=== PATIENT | female | born 1970 | race Caucasian/White ===

== ENCOUNTER 2021-09-10 22:22 | Inpatient (IN) ==
[2021-09-10] MEDS ORDERED: *HR* OxyCODONE/APAP 10/325 TABLET PO ONE (23:37)
[2021-09-11 00:18] LABS: Basophils % 0.2 %; Hemoglobin 13.2 g/dL (11.5-15.4); Immature Granulocytes % 0.4 % (0-4); Mean Corpuscular Hemoglobin 28.6 pg (28.0-33.3); Monocytes % 4.5 %; Red Blood Count 4.61 M/mcL (3.82-4.97)
[2021-09-11 00:20] LABS: Hematocrit 42.4 % (35.3-44.9); Lymphocytes # 0.5 K/mcL (0.6-4.6); Mean Corpuscular HGB Conc 31.1 g/dL (31.6-35.5); Mean Platelet Volume 11.5 fL (9.4-12.4); Monocytes # 0.4 K/mcL (0.0-1.3); Neutrophils # 8.4 K/mcL (1.6-8.9); Platelet Count 164 K/mcL (140-400); Red Cell Distribution Width 17.1 % (11.5-14.5); Segmented Neutrophils % 89.9 %; White Blood Count 9.3 K/mcL (4.3-11.1)
[2021-09-11 00:26] LABS: INR 1.2; Prothrombin Time 13.7 Seconds (9.4-12.1)
[2021-09-11 00:29] LABS: Activated Partial Thrombo Time 25.7 Seconds (26.0-36.0)
[2021-09-11] MEDS ORDERED: Aspirin 325 MG TABLET PO ONE (00:31)
[2021-09-11 00:34] LABS: BUN/Creatinine Ratio 26 (6-26); Blood Urea Nitrogen 15 mg/dL (6-20); Calcium 10.4 mg/dL (8.6-10.3); Carbon Dioxide 29 mEq/L (23-29); Chloride 95 mEq/L (98-107); Glucose 93 mg/dL (70-105); Osmolality,Calculated 283 (280-300); Potassium 4.1 mEq/L (3.5-5.1); Sodium 136 mEq/L (136-145); eGFR For African Americans > 60 (> 60); eGFR For Non-African Americans > 60 (> 60)
[2021-09-11 01:11] LABS: Troponin I 0.09 ng/mL (< 0.04)
[2021-09-11] MEDS ORDERED: Naloxone 0.4 MG/ML INJ IVP PRN (02:22)
[2021-09-11] MEDS ORDERED: Perflutren Lipid Microsphere 1.3 ML in 0.9 % Sodium Chloride 8.7 ML IVP PRN (03:14)
[2021-09-11] MEDS: Ipratropium/Albuterol Neb 3 ML IH SCH ×4 (04:06→20:58)
[2021-09-11 05:28] LABS: Basophils % 0.2 %; Hematocrit 39.2 % (35.3-44.9); Hemoglobin 12.3 g/dL (11.5-15.4); Immature Granulocytes % 0.5 % (0-4); Lymphocytes # 0.5 K/mcL (0.6-4.6); Lymphocytes % 3.5 %; Mean Corpuscular HGB Conc 31.4 g/dL (31.6-35.5); Mean Corpuscular Hemoglobin 28.3 pg (28.0-33.3); Mean Corpuscular Volume 90.3 fL (83.0-100.0); Mean Platelet Volume 12.1 fL (9.4-12.4); Monocytes # 1.1 K/mcL (0.0-1.3); Monocytes % 7.7 %; Nucleated Red Blood Cells 0.1 /100 WBC (0); Platelet Count 141 K/mcL (140-400); Red Blood Count 4.34 M/mcL (3.82-4.97); Red Cell Distribution Width 16.8 % (11.5-14.5); Segmented Neutrophils % 88.1 %
[2021-09-11 05:29] LABS: Neutrophils # 12.9 K/mcL (1.6-8.9); White Blood Count 14.6 K/mcL (4.3-11.1)
[2021-09-11] MEDS ORDERED: hydrOXYzine pamoate 25 MG CAPSULE PO ONE (05:36)
[2021-09-11] MEDS ORDERED: *HR* OxyCODONE Immed Rel 5 MG TABLET PO ONE (05:58)
[2021-09-11] MEDS ORDERED: *HR* Heparin 5,000 UNIT/ML VIAL SQ SCH (06:00)
[2021-09-11 06:05] LABS: BUN/Creatinine Ratio 34 (6-26); Blood Urea Nitrogen 18 mg/dL (6-20); Carbon Dioxide 28 mEq/L (23-29); Chloride 96 mEq/L (98-107); Glucose 112 mg/dL (70-105); Magnesium 1.9 mg/dL (1.6-2.6); Osmolality,Calculated 289 (280-300); Phosphorous 2.6 mg/dL (2.7-4.5); Potassium 3.9 mEq/L (3.5-5.1); Sodium 138 mEq/L (136-145); Troponin I 0.21 ng/mL (< 0.04); eGFR For African Americans > 60 (> 60); eGFR For Non-African Americans > 60 (> 60)
[2021-09-11] MEDS ORDERED: *HR* Heparin 5,000 UNIT/ML VIAL IVP PRN (06:17)
[2021-09-11 06:59] LABS: Heparin anti-factor XA UFH < 0.04 IU/mL (0.30-0.70); INR 1.2; Prothrombin Time 13.9 Seconds (9.4-12.1)
[2021-09-11] MEDS: Budesonide/Formoterol 160/4.5 1 PUFF INH IH SCH ×2 (07:33→20:58)
[2021-09-11] MEDS: Heparin 25,000UNIT/250ML 1/2NS 25,000 UNIT/250 ML IV.SOLN IVC SCH (08:13)
[2021-09-11] MEDS: MethylPREDNISolone 40 MG/ML VIAL IVP SCH ×3 (08:14→23:53)
[2021-09-11] MEDS: Azithromycin 500 MG in 0.9 % Sodium Chloride 250 ML IVPB SCH (08:15)
[2021-09-11] MEDS ORDERED: cefTRIAXone 1,000 MG in 0.9 % Sodium Chloride Mini Bag 100 ML IVPB SCH (09:00)
[2021-09-11] MEDS ORDERED: Azithromycin 250 MG TABLET PO SCH (09:00)
[2021-09-11] MEDS ORDERED: carvediloL 6.25 MG TABLET PO SCH (09:42)
[2021-09-11] MEDS ORDERED: ALPRAZolam 0.25 MG TABLET PO PRN (11:32)
[2021-09-11 17:14] LABS: Bilirubin,Urine Negative (Negative); Blood,Urine Trace (Negative); Clarity,Urine Clear (Clear); Color,Urine Yellow (Yellow); Glucose,Urine (UA) Normal (Normal); Ketones,Urine 60 mg/dL (Negative); Leukocyte Esterase,Urine Negative (Negative); Mucus,Urine Few per lpf (None-Few); Nitrite,Urine Negative (Negative); Protein,Urine 100 mg/dL (Neg-Trace); RBC,Urine 0-3 per hpf (0-3); Specific Gravity,Urine > 1.030 (1.010-1.025); Squamous Epithelial Cell,Urine Few per hpf (None-Few); Urobilinogen,Urine Normal (Normal); WBC,Urine 0-3 per hpf (0-3)
[2021-09-11] MEDS ORDERED: *HR* LORazepam 2 MG/ML VIAL IVP PRN (17:49)
[2021-09-11 18:43] LABS: ABG Base Excess 9 mEq/L (-2 to 3); ABG HCO3 37 mEq/L (21-27); ABG Oxygen Saturation 85 % (95-98); ABG PCO2 64 mmHg (35-45); ABG PH 7.37 pH Units (7.32-7.45); ABG PO2 54 mmHg (85-104); ABG TCO2 39 mEq/L (20-26)
[2021-09-11] MEDS ORDERED: Morphine Sulfate 2 MG/ML SYRINGE IVP ONE (18:58)
[2021-09-11] MEDS ORDERED: Vancomycin 1,500 MG/265 ML IV.SOLN IVPB SCH (19:00)
[2021-09-11] MEDS ORDERED: Nitroglycerin 1 INCH/GM PACKET TP ONE (19:27)
[2021-09-11] MEDS ORDERED: Furosemide 40 MG/4 ML VIAL IVP ONE (19:38)
[2021-09-11] MEDS: Metoprolol XL (24 HR) Succ 25 MG TAB.ER.24H PO SCH ×2 (20:13→23:52)
[2021-09-11] MEDS: *HR* Heparin 5,000 UNIT/ML VIAL IVP PRN (22:16)
[2021-09-11] MEDS: Cefepime HCl 2,000 MG in 0.9 % Sodium Chloride Mini Bag 100 ML IVPB SCH (23:52)
[2021-09-12] MEDS ORDERED: hydrOXYzine pamoate 25 MG CAPSULE PO PRN (02:16)
[2021-09-12] MEDS ORDERED: *HR* LORazepam 2 MG/ML VIAL IVP ONE ×3 (02:19→05:56)
[2021-09-12] MEDS: Ipratropium/Albuterol Neb 3 ML IH SCH ×4 (04:02→19:50)
[2021-09-12 05:00] LABS: Basophils # 0.1 K/mcL (0.0-0.2); Basophils % 0.3 %; Hematocrit 42.5 % (35.3-44.9); Immature Granulocytes % 0.8 % (0-4); Lymphocytes # 0.7 K/mcL (0.6-4.6); Lymphocytes % 3.2 %; Mean Corpuscular HGB Conc 33.4 g/dL (31.6-35.5); Mean Corpuscular Hemoglobin 29.5 pg (28.0-33.3); Mean Corpuscular Volume 88.2 fL (83.0-100.0); Mean Platelet Volume 12.4 fL (9.4-12.4); Monocytes # 1.1 K/mcL (0.0-1.3); Monocytes % 4.8 %; Neutrophils # 20.5 K/mcL (1.6-8.9); Nucleated Red Blood Cells 0.1 /100 WBC (0); Platelet Count 148 K/mcL (140-400); Red Blood Count 4.82 M/mcL (3.82-4.97); Red Cell Distribution Width 17.3 % (11.5-14.5); Segmented Neutrophils % 90.9 %
[2021-09-12 05:02] LABS: Hemoglobin 14.2 g/dL (11.5-15.4); White Blood Count 22.5 K/mcL (4.3-11.1)
[2021-09-12] MEDS: *HR* Heparin 5,000 UNIT/ML VIAL IVP PRN ×2 (05:34→21:21)
[2021-09-12] MEDS: Azithromycin 500 MG in 0.9 % Sodium Chloride 250 ML IVPB SCH (05:36)
[2021-09-12 05:59] LABS: Alanine Aminotransferase 145 Units/L (7-52); Albumin 3.4 g/dL (3.5-5.7); Albumin/Globulin Ratio 1.1 (1.1-2.2); Alkaline Phosphatase 95 Units/L (34-104); Aspartate Amino Transferase 71 Units/L (13-39); BUN/Creatinine Ratio 43 (6-26); Bilirubin,Total 0.6 mg/dL (0.3-1.0); Blood Urea Nitrogen 21 mg/dL (6-20); Calcium 9.5 mg/dL (8.6-10.3); Carbon Dioxide 34 mEq/L (23-29); Chloride 89 mEq/L (98-107); Chol/HDL Ratio 2.8 (0-4.9); Cholesterol 116 mg/dL (< 200); Globulin 3.1 g/dL (2.4-3.5); Glucose 124 mg/dL (70-105); HDL Cholesterol 41 mg/dL (40-59); LDL Cholesterol,Calculated 53 mg/dL (< 100); Osmolality,Calculated 284 (280-300); Potassium 3.7 mEq/L (3.5-5.1); Sodium 135 mEq/L (136-145); Total Protein 6.5 g/dL (6.4-8.9); Triglycerides 111 mg/dL (< 150); eGFR For African Americans > 60 (> 60); eGFR For Non-African Americans > 60 (> 60)
[2021-09-12] MEDS: MethylPREDNISolone 40 MG/ML VIAL IVP SCH ×2 (08:26→20:48)
[2021-09-12] MEDS: Metoprolol XL (24 HR) Succ 25 MG TAB.ER.24H PO SCH ×2 (08:27→20:48)
[2021-09-12] MEDS: Aspirin 81 MG TAB.CHEW PO SCH (08:28)
[2021-09-12] MEDS: Cefepime HCl 2,000 MG in 0.9 % Sodium Chloride Mini Bag 100 ML IVPB SCH ×2 (08:28→20:49)
[2021-09-12] MEDS: Dexmedetomidine HCl 400 MCG/100 ML MLS IVC SCH ×2 (09:12→18:00)
[2021-09-12] MEDS: Budesonide/Formoterol 160/4.5 1 PUFF INH IH SCH ×2 (10:22→19:50)
[2021-09-12 16:04] LABS: ABG Base Excess 8 mEq/L (-2 to 3); ABG HCO3 33 mEq/L (21-27); ABG Oxygen Saturation 99 % (95-98); ABG PCO2 45 mmHg (35-45); ABG PH 7.47 pH Units (7.32-7.45); ABG PO2 146 mmHg (85-104); ABG TCO2 34 mEq/L (20-26)
[2021-09-12] MEDS: Nicotine 21 MG PATCH.TD24 TD SCH (17:05)
[2021-09-12] MEDS: Heparin 25,000UNIT/250ML 1/2NS 25,000 UNIT/250 ML IV.SOLN IVC SCH (19:29)
[2021-09-13 03:33] LABS: Red Cell Distribution Width 16.9 % (11.5-14.5)
[2021-09-13 03:35] LABS: Hematocrit 40.5 % (35.3-44.9); Hemoglobin 13.6 g/dL (11.5-15.4); Immature Platelets 5.9 % (1.1-6.1); Mean Corpuscular HGB Conc 33.6 g/dL (31.6-35.5); Mean Corpuscular Hemoglobin 29.4 pg (28.0-33.3); Mean Corpuscular Volume 87.7 fL (83.0-100.0); Mean Platelet Volume 12.2 fL (9.4-12.4); Red Blood Count 4.62 M/mcL (3.82-4.97); White Blood Count 20.8 K/mcL (4.3-11.1)
[2021-09-13 03:41] LABS: VBG HCO3 36 mEq/L (21-27); VBG PCO2 41 mmHg (41-51); VBG PH 7.55 pH Units (7.32-7.42); VBG PO2 77 mmHg (25-50)
[2021-09-13 03:52] LABS: Alanine Aminotransferase 88 Units/L (7-52); Albumin/Globulin Ratio 1.1 (1.1-2.2); Alkaline Phosphatase 72 Units/L (34-104); Aspartate Amino Transferase 28 Units/L (13-39); BUN/Creatinine Ratio 51 (6-26); Bilirubin,Direct 0.1 mg/dL (0.0-0.2); Bilirubin,Indirect 0.4 mg/dL (0.0-1.0); Bilirubin,Total 0.5 mg/dL (0.3-1.0); Blood Urea Nitrogen 28 mg/dL (6-20); Calcium 9.2 mg/dL (8.6-10.3); Carbon Dioxide 33 mEq/L (23-29); Chloride 96 mEq/L (98-107); Globulin 2.7 g/dL (2.4-3.5); Glucose 125 mg/dL (70-105); Magnesium 2.3 mg/dL (1.6-2.6); Osmolality,Calculated 297 (280-300); Phosphorous 3.1 mg/dL (2.7-4.5); Potassium 3.9 mEq/L (3.5-5.1); Sodium 140 mEq/L (136-145); Total Protein 5.7 g/dL (6.4-8.9); Troponin I 1.16 ng/mL (< 0.04); eGFR For African Americans > 60 (> 60); eGFR For Non-African Americans > 60 (> 60)
[2021-09-13] MEDS: Ipratropium/Albuterol Neb 3 ML IH SCH ×4 (04:06→19:31)
[2021-09-13] MEDS: *HR* Heparin 5,000 UNIT/ML VIAL IVP PRN (05:21)
[2021-09-13] MEDS: Dexmedetomidine HCl 400 MCG/100 ML MLS IVC SCH ×2 (05:22→12:15)
[2021-09-13] MEDS: MethylPREDNISolone 40 MG/ML VIAL IVP SCH ×4 (05:22→21:33)
[2021-09-13] MEDS: Cefepime HCl 2,000 MG in 0.9 % Sodium Chloride Mini Bag 100 ML IVPB SCH ×4 (05:23→21:33)
[2021-09-13] MEDS: Azithromycin 500 MG in 0.9 % Sodium Chloride 250 ML IVPB SCH (06:15)
[2021-09-13] MEDS: Budesonide/Formoterol 160/4.5 1 PUFF INH IH SCH ×2 (10:15→19:31)
[2021-09-13] MEDS: Nicotine 21 MG PATCH.TD24 TD SCH (12:17)
[2021-09-13] MEDS: Aspirin 81 MG TAB.CHEW PO SCH (12:17)
[2021-09-13] MEDS: Metoprolol XL (24 HR) Succ 25 MG TAB.ER.24H PO SCH ×2 (12:18→19:52)
[2021-09-13] MEDS: DilTIAZem CD (24hr) 120 MG CAP.ER.24H PO SCH (12:18)
[2021-09-13] MEDS ORDERED: Perflutren Lipid Microsphere 1.3 ML in 0.9 % Sodium Chloride 8.7 ML IVP PRN (14:47)
[2021-09-13] MEDS: Heparin 25,000UNIT/250ML 1/2NS 25,000 UNIT/250 ML IV.SOLN IVC SCH (17:49)
[2021-09-13] MEDS: QUEtiapine Fumarate 25 MG TABLET PO SCH ×2 (19:52→20:25)
[2021-09-13] MEDS: Melatonin 3 MG TABLET PO PRN (19:52)
[2021-09-14 00:34] LABS: Hematocrit 39.6 % (35.3-44.9); Hemoglobin 13.4 g/dL (11.5-15.4); Mean Corpuscular HGB Conc 33.8 g/dL (31.6-35.5); Mean Corpuscular Hemoglobin 29.4 pg (28.0-33.3); Mean Corpuscular Volume 86.8 fL (83.0-100.0); Mean Platelet Volume 11.9 fL (9.4-12.4); Platelet Count 135 K/mcL (140-400); Red Blood Count 4.56 M/mcL (3.82-4.97); Red Cell Distribution Width 17.7 % (11.5-14.5); White Blood Count 26.4 K/mcL (4.3-11.1)
[2021-09-14 00:54] LABS: BUN/Creatinine Ratio 50 (6-26); Blood Urea Nitrogen 29 mg/dL (6-20); Calcium 9.1 mg/dL (8.6-10.3); Carbon Dioxide 34 mEq/L (23-29); Chloride 96 mEq/L (98-107); Glucose 124 mg/dL (70-105); Osmolality,Calculated 293 (280-300); Potassium 3.3 mEq/L (3.5-5.1); Sodium 138 mEq/L (136-145); eGFR For African Americans > 60 (> 60); eGFR For Non-African Americans > 60 (> 60)
[2021-09-14] MEDS: *HR* Heparin 5,000 UNIT/ML VIAL IVP PRN (01:51)
[2021-09-14] MEDS: Ipratropium/Albuterol Neb 3 ML IH SCH ×6 (03:41→23:52)
[2021-09-14] MEDS: MethylPREDNISolone 40 MG/ML VIAL IVP SCH ×2 (05:23→21:13)
[2021-09-14] MEDS: Cefepime HCl 2,000 MG in 0.9 % Sodium Chloride Mini Bag 100 ML IVPB SCH (05:23)
[2021-09-14] MEDS: Azithromycin 500 MG in 0.9 % Sodium Chloride 250 ML IVPB SCH (06:26)
[2021-09-14] MEDS: Nicotine 21 MG PATCH.TD24 TD SCH (07:59)
[2021-09-14] MEDS: Aspirin 81 MG TAB.CHEW PO SCH (08:00)
[2021-09-14] MEDS: Metoprolol XL (24 HR) Succ 25 MG TAB.ER.24H PO SCH ×2 (08:00→21:11)
[2021-09-14] MEDS: DilTIAZem CD (24hr) 120 MG CAP.ER.24H PO SCH (08:00)
[2021-09-14] MEDS: Heparin 25,000UNIT/250ML 1/2NS 25,000 UNIT/250 ML IV.SOLN IVC SCH (08:15)
[2021-09-14] MEDS: Budesonide/Formoterol 160/4.5 1 PUFF INH IH SCH ×2 (10:23→19:37)
[2021-09-14] MEDS: *HR* LORazepam 1 MG TABLET PO PRN ×2 (10:54→21:13)
[2021-09-14] MEDS: *HR* Enoxaparin 60 MG/0.6 ML SYRINGE SQ SCH ×2 (12:51→21:13)
[2021-09-14] MEDS: Cefdinir 300 MG CAPSULE PO SCH (21:11)
[2021-09-14] MEDS: QUEtiapine Fumarate 25 MG TABLET PO SCH (21:12)
[2021-09-15 01:18] LABS: Hemoglobin 12.6 g/dL (11.5-15.4)
[2021-09-15 01:20] LABS: Hematocrit 39.4 % (35.3-44.9); Mean Corpuscular Hemoglobin 28.4 pg (28.0-33.3); Mean Corpuscular Volume 88.7 fL (83.0-100.0); Mean Platelet Volume 11.2 fL (9.4-12.4); Platelet Count 129 K/mcL (140-400); Red Blood Count 4.44 M/mcL (3.82-4.97); Red Cell Distribution Width 17.5 % (11.5-14.5)
[2021-09-15 01:22] LABS: White Blood Count 31.6 K/mcL (4.3-11.1)
[2021-09-15 01:38] LABS: BUN/Creatinine Ratio 40 (6-26); Blood Urea Nitrogen 19 mg/dL (6-20); Calcium 8.8 mg/dL (8.6-10.3); Carbon Dioxide 32 mEq/L (23-29); Chloride 98 mEq/L (98-107); Glucose 117 mg/dL (70-105); Magnesium 2.3 mg/dL (1.6-2.6); Osmolality,Calculated 285 (280-300); Potassium 3.9 mEq/L (3.5-5.1); Sodium 136 mEq/L (136-145); eGFR For African Americans > 60 (> 60); eGFR For Non-African Americans > 60 (> 60)
[2021-09-15] MEDS: Ipratropium/Albuterol Neb 3 ML IH SCH ×6 (03:46→23:34)
[2021-09-15] MEDS: Budesonide/Formoterol 160/4.5 1 PUFF INH IH SCH ×2 (07:22→19:43)
[2021-09-15] MEDS: Nicotine 21 MG PATCH.TD24 TD SCH (09:35)
[2021-09-15] MEDS: Azithromycin 250 MG TABLET PO SCH (09:36)
[2021-09-15] MEDS: *HR* Enoxaparin 60 MG/0.6 ML SYRINGE SQ SCH (09:36)
[2021-09-15] MEDS: Cefdinir 300 MG CAPSULE PO SCH ×2 (09:37→19:33)
[2021-09-15] MEDS: DilTIAZem CD (24hr) 120 MG CAP.ER.24H PO SCH (09:37)
[2021-09-15] MEDS: Metoprolol XL (24 HR) Succ 25 MG TAB.ER.24H PO SCH ×2 (09:37→19:33)
[2021-09-15] MEDS: Aspirin 81 MG TAB.CHEW PO SCH (09:37)
[2021-09-15] MEDS: MethylPREDNISolone 40 MG/ML VIAL IVP SCH (09:38)
[2021-09-15] MEDS: *HR* LORazepam 1 MG TABLET PO PRN ×2 (09:46→19:32)
[2021-09-15] MEDS: *HR* HYDROcodone/Acet 5/325 mg TABLET PO PRN ×2 (12:21→16:22)
[2021-09-15] MEDS: QUEtiapine Fumarate 25 MG TABLET PO SCH (19:32)
[2021-09-15] MEDS: Melatonin 3 MG TABLET PO PRN (19:33)
[2021-09-16 03:34] LABS: Hematocrit 40.8 % (35.3-44.9); Hemoglobin 13.2 g/dL (11.5-15.4); Mean Corpuscular HGB Conc 32.4 g/dL (31.6-35.5); Mean Corpuscular Hemoglobin 29.2 pg (28.0-33.3); Mean Corpuscular Volume 90.3 fL (83.0-100.0); Mean Platelet Volume 11.1 fL (9.4-12.4); Platelet Count 160 K/mcL (140-400); Red Blood Count 4.52 M/mcL (3.82-4.97); Red Cell Distribution Width 17.2 % (11.5-14.5)
[2021-09-16] MEDS: Ipratropium/Albuterol Neb 3 ML IH SCH ×2 (03:43→07:37)
[2021-09-16 03:46] LABS: White Blood Count 41.7 K/mcL (4.3-11.1)
[2021-09-16 03:47] LABS: BUN/Creatinine Ratio 29 (6-26); Blood Urea Nitrogen 14 mg/dL (6-20); Calcium 8.8 mg/dL (8.6-10.3); Carbon Dioxide 32 mEq/L (23-29); Chloride 97 mEq/L (98-107); Glucose 105 mg/dL (70-105); Osmolality,Calculated 281 (280-300); Potassium 3.9 mEq/L (3.5-5.1); Sodium 135 mEq/L (136-145); eGFR For African Americans > 60 (> 60); eGFR For Non-African Americans > 60 (> 60)
[2021-09-16] MEDS: *HR* Enoxaparin 40 MG/0.4 ML SYRINGE SQ SCH (05:19)
[2021-09-16] MEDS: *HR* LORazepam 1 MG TABLET PO PRN ×3 (05:19→17:06)
[2021-09-16] MEDS: Budesonide/Formoterol 160/4.5 1 PUFF INH IH SCH ×2 (07:37→19:51)
[2021-09-16] MEDS: predniSONE 20 MG TABLET PO SCH (07:49)
[2021-09-16] MEDS: Cefdinir 300 MG CAPSULE PO SCH ×2 (07:49→19:50)
[2021-09-16] MEDS: Aspirin 81 MG TAB.CHEW PO SCH (07:49)
[2021-09-16] MEDS: *HR* HYDROcodone/Acet 5/325 mg TABLET PO PRN ×2 (07:49→17:06)
[2021-09-16] MEDS: Metoprolol XL (24 HR) Succ 25 MG TAB.ER.24H PO SCH ×2 (07:49→19:49)
[2021-09-16] MEDS: Azithromycin 250 MG TABLET PO SCH (07:50)
[2021-09-16] MEDS: DilTIAZem CD (24hr) 120 MG CAP.ER.24H PO SCH (07:50)
[2021-09-16] MEDS: Nicotine 21 MG PATCH.TD24 TD SCH (07:50)
[2021-09-16 09:11] LABS: Basophils # 0.1 K/mcL (0.0-0.2); Basophils % 0.2 %; Immature Granulocytes % 1.5 % (0-4); Lymphocytes # 0.9 K/mcL (0.6-4.6); Lymphocytes % 2.2 %; Monocytes # 1.5 K/mcL (0.0-1.3); Monocytes % 3.6 %; Segmented Neutrophils % 92.5 %
[2021-09-16 09:16] LABS: Neutrophils # 38.6 K/mcL (1.6-8.9)
[2021-09-16 09:25] LABS: Platelet Estimate Normal (Normal)
[2021-09-16] MEDS ORDERED: Ipratropium/Albuterol Neb 3 ML IH PRN (10:54)
[2021-09-16] MEDS: Bismuth Subsalicylate 120 ML ORAL SUSPENSION PO PRN (17:21)
[2021-09-16] MEDS: Melatonin 3 MG TABLET PO PRN (19:49)
[2021-09-16] MEDS: QUEtiapine Fumarate 25 MG TABLET PO SCH (19:49)
[2021-09-17 01:11] LABS: Basophils % 0.2 %; Lymphocytes % 3.6 %; Red Cell Distribution Width 16.9 % (11.5-14.5)
[2021-09-17 01:13] LABS: Basophils # 0.1 K/mcL (0.0-0.2); Hematocrit 42.6 % (35.3-44.9); Hemoglobin 13.9 g/dL (11.5-15.4); Immature Granulocytes % 1.2 % (0-4); Lymphocytes # 1.4 K/mcL (0.6-4.6); Mean Corpuscular HGB Conc 32.6 g/dL (31.6-35.5); Mean Corpuscular Volume 88.9 fL (83.0-100.0); Mean Platelet Volume 11.3 fL (9.4-12.4); Monocytes # 1.5 K/mcL (0.0-1.3); Neutrophils # 34.6 K/mcL (1.6-8.9); Platelet Count 179 K/mcL (140-400); Red Blood Count 4.79 M/mcL (3.82-4.97)
[2021-09-17 01:28] LABS: BUN/Creatinine Ratio 26 (6-26); Blood Urea Nitrogen 12 mg/dL (6-20); Calcium 8.9 mg/dL (8.6-10.3); Carbon Dioxide 32 mEq/L (23-29); Chloride 94 mEq/L (98-107); Glucose 98 mg/dL (70-105); Osmolality,Calculated 276 (280-300); Potassium 3.7 mEq/L (3.5-5.1); Sodium 133 mEq/L (136-145); Uric Acid 1.9 mg/dL (2.3-7.6); eGFR For African Americans > 60 (> 60); eGFR For Non-African Americans > 60 (> 60)
[2021-09-17] MEDS: Bismuth Subsalicylate 120 ML ORAL SUSPENSION PO PRN (03:53)
[2021-09-17] MEDS: *HR* LORazepam 1 MG TABLET PO PRN ×2 (03:53→20:06)
[2021-09-17] MEDS: *HR* Enoxaparin 40 MG/0.4 ML SYRINGE SQ SCH (05:59)
[2021-09-17] MEDS: Aspirin 81 MG TAB.CHEW PO SCH (08:07)
[2021-09-17] MEDS: Cefdinir 300 MG CAPSULE PO SCH ×2 (08:07→20:06)
[2021-09-17] MEDS: DilTIAZem CD (24hr) 120 MG CAP.ER.24H PO SCH (08:08)
[2021-09-17] MEDS: Azithromycin 250 MG TABLET PO SCH (08:08)
[2021-09-17] MEDS: Metoprolol XL (24 HR) Succ 25 MG TAB.ER.24H PO SCH ×2 (08:08→20:06)
[2021-09-17] MEDS: predniSONE 20 MG TABLET PO SCH (08:09)
[2021-09-17] MEDS: Nicotine 21 MG PATCH.TD24 TD SCH (08:09)
[2021-09-17] MEDS: Budesonide/Formoterol 160/4.5 1 PUFF INH IH SCH ×2 (08:50→20:06)
[2021-09-17] MEDS ORDERED: *HR* FentaNYL (PF) 100 MCG/2 ML VIAL ONE (16:21)
[2021-09-17] MEDS ORDERED: *HR* Midazolam HCl 2 MG/2 ML VIAL ONE (16:22)
[2021-09-17] MEDS ORDERED: *HR* Heparin 10,000 UNIT/10 ML VIAL ONE (16:22)
[2021-09-17] MEDS ORDERED: ISOVUE-370 200 ML INFUS..BTL ONE (16:23)
[2021-09-17] MEDS ORDERED: 0.9 % Sodium Chloride 2,000 ML ONE (16:23)
[2021-09-17] MEDS ORDERED: Nitroglycerin 1,000 MCG/5 ML VIAL IV ONE (16:23)
[2021-09-17] MEDS ORDERED: Heparin 1,000 UNITS/500 mL 500 ML ONE (16:23)
[2021-09-17] MEDS: QUEtiapine Fumarate 25 MG TABLET PO SCH (20:06)
[2021-09-17] MEDS: *HR* HYDROcodone/Acet 5/325 mg TABLET PO PRN (20:07)
[2021-09-18 03:17] LABS: Hemoglobin 14.3 g/dL (11.5-15.4); Mean Corpuscular HGB Conc 32.5 g/dL (31.6-35.5); Mean Corpuscular Hemoglobin 28.7 pg (28.0-33.3); Mean Corpuscular Volume 88.4 fL (83.0-100.0); Platelet Count 187 K/mcL (140-400); Red Blood Count 4.98 M/mcL (3.82-4.97); Red Cell Distribution Width 16.7 % (11.5-14.5)
[2021-09-18 03:33] LABS: BUN/Creatinine Ratio 28 (6-26); Blood Urea Nitrogen 11 mg/dL (6-20); Calcium 8.6 mg/dL (8.6-10.3); Carbon Dioxide 30 mEq/L (23-29); Chloride 96 mEq/L (98-107); Glucose 79 mg/dL (70-105); Osmolality,Calculated 276 (280-300); Potassium 3.4 mEq/L (3.5-5.1); Sodium 134 mEq/L (136-145); eGFR For African Americans > 60 (> 60); eGFR For Non-African Americans > 60 (> 60)
[2021-09-18] MEDS: *HR* HYDROcodone/Acet 5/325 mg TABLET PO PRN (05:00)
[2021-09-18] MEDS: *HR* LORazepam 1 MG TABLET PO PRN (05:01)
[2021-09-18] MEDS: *HR* Enoxaparin 40 MG/0.4 ML SYRINGE SQ SCH (05:01)
[2021-09-18 06:50] VITALS: BP 108/72; PULSE 98; TEMP 98
[2021-09-18] MEDS: Aspirin 81 MG TAB.CHEW PO SCH (08:06)
[2021-09-18] MEDS: predniSONE 20 MG TABLET PO SCH (08:06)
[2021-09-18] MEDS: Metoprolol XL (24 HR) Succ 25 MG TAB.ER.24H PO SCH (08:06)
[2021-09-18] MEDS: Azithromycin 250 MG TABLET PO SCH (08:06)
[2021-09-18] MEDS: Cefdinir 300 MG CAPSULE PO SCH (08:06)
[2021-09-18] MEDS: DilTIAZem CD (24hr) 120 MG CAP.ER.24H PO SCH (08:06)
[2021-09-18] MEDS: Nicotine 21 MG PATCH.TD24 TD SCH (08:07)
[2021-09-18] MEDS: Budesonide/Formoterol 160/4.5 1 PUFF INH IH SCH (09:47)
[2021-09-18 10:51] VITALS: O2SAT 99
== END 2021-09-18 11:18 | disposition home or self-care (01) | DRG 193 ==
LOC: 2ANU 22:22 → EMEROOARM 22:22 → SUATTDRO 09-11 02:31 → 2ANU 09-11 02:54 → 2NNU 09-11 19:42 → 2ANU 09-14 09:16
PROVIDERS: ADMIT Internal Medicine; ATTEND Internal Medicine